=== PATIENT | female | born 1990 | race Caucasian/White ===

== ENCOUNTER 2018-04-29 05:33 | Day surgery (SDC) | payer OTHER ==
[2018-04-22 09:54] LABS: APPEARANCE,URINE CLEAR; BILIRUBIN,URINE NEGATIVE (NEGATIVE); COLOR,URINE STRAW; GLUCOSE, URINE NEGATIVE (NEGATIVE); KETONES,URINE 20 mg/dL (NEGATIVE); LEUKOCYTE ESTERASE,URINE TRACE (NEGATIVE); NITRITE,URINE NEGATIVE (NEGATIVE); PROTEIN,URINE NEGATIVE (NEGATIVE); URINE SPECIFIC GRAVITY 1.015; UROBILINOGEN,URINE NEGATIVE mg/dL (<2.0)
[2018-04-22 10:22] LABS: HEMATOCRIT 42.5 % (36.0-47.0); HEMOGLOBIN 14.7 g/dL (12.0-15.5); MEAN CORPUSCULAR HGB CONC 34.6 g/dL (32.0-36.0); MEAN CORPUSCULAR VOLUME 87 fl (80-97); PLATELET COUNT 224 10^3/uL (150-450); RED BLOOD COUNT 4.89 10^6/uL (3.72-5.28); WHITE BLOOD COUNT 7.8 10^3/uL (4.0-10.5)
[~2018-04-29 05:33] MED LIST: LACTATED RINGERS 1000 ML IV PRN; LIDOCAINE 0.5% INJ-PF (5 MG/ML) 50 ML SDV SUBCUT PRN
[2018-04-29] MEDS ORDERED: FENTANYL CITRATE INJ/PF 100 MCG/2 ML AMPUL ONE (06:27)
[2018-04-29] MEDS ORDERED: PROPOFOL INJ 200 MG/20 ML VIAL IV ONE (06:28)
[2018-04-29] MEDS ORDERED: MIDAZOLAM 2 MG/2 ML INJ ONE (06:28)
[2018-04-29] MEDS ORDERED: PROMETHAZINE HCL INJ 25 MG/1 ML VIAL IV PRN (08:03)
[2018-04-29] MEDS ORDERED: DIPHENHYDRAMINE HCL 50 MG/ML VIAL IV PRN (08:03)
[2018-04-29] MEDS ORDERED: MEPERIDINE HCL/PF INJ 25 MG/1 ML DISP.SYRIN IV PRN (08:03)
[2018-04-29] MEDS ORDERED: FENTANYL CITRATE INJ/PF 100 MCG/2 ML AMPUL IV PRN ×3 (08:03)
[2018-04-29] MEDS ORDERED: IBUPROFEN 800 MG TABLET PO PRN (08:57)
[2018-04-29] MEDS ORDERED: OXYCODONE-ACETAMINOPHEN 5-325 MG TABLET PO PRN ×2 (08:57)
[2018-04-29] MEDS ORDERED: RINGERS SOLUTION,LACTATED 1,000 ML IV PRN (08:57)
[2018-04-29] MEDS ORDERED: KETOROLAC TROMETHAMINE INJ/PF 30 MG/1 ML SDV IV PRN (08:57)
--- NOTE | 2018-04-29 09:05 | Operative Report ---
Operative Report DATE OF SURGERY: 04/29/18 PREOPERATIVE DIAGNOSIS: Patient desires removal of her IUD and a tubal ligation with fulguration POSTOPERATIVE DIAGNOSIS: Same OPERATION: IUD removal followed by hysteroscopy to remove the arms of the IUD and then a laparoscopic tubal ligation with fulguration SURGEON: IMER MATTSON ANESTHESIA: GA TISSUE REMOVED OR ALTERED: IUD and fallopian tubes COMPLICATIONS: None ESTIMATED BLOOD LOSS: 5 cc INTRAOPERATIVE FINDINGS: Normal uterus tubes and ovaries PROCEDURE: The patient was taken the OR and placed in supine position. General anesthesia was induced. She was placed in dorsolithotomy position using Maurilio stirrups. Her perineum vagina and abdomen were prepared and draped in a sterile fashion. A speculum was placed in the vagina and the IUD string could be seen and was removed with ring forceps. On inspection only the central post of the IUD was present both arms were missing. For this reason we set up the hysteroscopy. The uterus was sounded to 7 cm. The cervix was gently dilated. The scope was inserted with saline as the distention medium. View of the uterine cavity was good although she was bleeding a small bit. She appeared to be on her menses. Both arms of the IUD were identified and were moved with the hysteroscope. An incision was made at the umbilicus. The natural umbilical defect was identified and enlarged the fascial level. A blunt port was placed. Laparoscopy confirmed appropriate placement. The abdomen was insufflated with CO2 gas. View of the pelvis was very good. Each fallopian tube was cauterized using the Kleppinger cautery device at the mid isthmic portion moving back toward the uterine cornu with 5 successive bites. Photos were taken. The gas was allowed to escape from the abdomen. The port and scope were removed at the same time. The fascia at the umbilicus was closed with a 2-0 Vicryl stitch and skin closed with a 4-0 undyed Vicryl stitch. All instruments were removed from the vagina. She was extubated in the OR and taken recovery room in stable condition.
[2018-04-29] MEDS ORDERED: KETOROLAC TROMETHAMINE INJ/PF 30 MG/1 ML SDV ONE (09:39)
[2018-04-29 10:57] VITALS: BP 138/90
[2018-04-29] MEDS ORDERED: LIDOCAINE 2% INJ-PF (20 MG/ML) 2 ML AMPUL ONE (13:51)
[2018-04-29] MEDS ORDERED: ONDANSETRON HCL INJ/PF 4 MG/2 ML SDV ONE (13:51)
[2018-04-29] MEDS ORDERED: SUCCINYLCHOLINE CHLORIDE INJ 200 MG/10 ML VIAL ONE (13:51)
== END 2018-04-29 10:30 | disposition home or self-care (01) ==
LOC: OROUT 05:33
PROVIDERS: ATTEND Obstetrics & Gynecology
DX: Z30.2 Encounter for sterilization (principal); Z30.432 Encounter for removal of intrauterine contraceptive device; Z88.3 Allergy status to other anti-infective agents; Z87.892 Personal history of anaphylaxis
CPT/HCPCS: 36415; 85027; 81005; 81025; 58670; 58301; 58579; J2250; J3010; J1885; J0330; J2405; J2704; J3490; 851